=== PATIENT | female | born 1940 | race Caucasian/White ===

== ENCOUNTER 2016-12-15 13:27 | Inpatient (IN) | payer MEDICARE, BC ==
[~2016-12-15] VITALS: Ht 160 cm; Wt 61.4 kg
[~2016-12-15 13:27] MED LIST: ALBU14.76 IH
--- NOTE | 2016-12-15 13:36 | NUR ---
REPORT REC'D FROM DENZEL GOSS. THIS RN WILL RESUME CARE.
[2016-12-15] MEDS ORDERED: ALBU2.5V7 AEROSOL (13:44)
[2016-12-15] MEDS ORDERED: BUDE10.22 INH (13:45)
[2016-12-15] MEDS ORDERED: MAGN200T4 PO (13:46)
[2016-12-15] MEDS ORDERED: NITR0.4T39 SL (13:47)
[2016-12-15] MEDS ORDERED: SIMV20TA6 PO (13:47)
[2016-12-15] MEDS ORDERED: UMEC62.5 INH (13:48)
[2016-12-15] MEDS ORDERED: DICL75TA5 PO (13:49)
[2016-12-15] MEDS ORDERED: NORMAL SALINE 1,000 ML IV ONE (13:50)
[2016-12-15] MEDS ORDERED: PRED20TA PO (13:51)
[2016-12-15] MEDS ORDERED: CEFD300C3 PO (13:52)
--- NOTE | 2016-12-15 13:53 | NUR ---
PROVIDER DR. HUITRON AT BEDSIDE.
--- NOTE | 2016-12-15 13:59 | NUR ---
RT AT BEDSIDE FOR DUJERRYB TX.
[2016-12-15] MEDS ORDERED: ALBUTEROL/IPRATROPIUM INHAL. 2.5mg-0.5mg/3ml Neb. AEROSOL ONE (14:00)
--- NOTE | 2016-12-15 14:06 | ERPDOC ---
Departure Disposition Decision Date: Dec 15, 2016 Disposition Decision Time: 18:17 Disposition: 02 TO [facility] Impression Impression Impression: Primary Impression: COPD exacerbation Additional Impression: Hypoxemia Severity: Moderate Condition: Improved Seen By: Physician only Problems/Meds/Labs Reviewed?: Yes Medications reviewed and manag: Yes Follow up care ordered?: Yes Mental Status: Alert HPI - Dyspnea General Chief Complaint: Dyspnea/Respdistress Stated Complaint: DIFFICULTY BREATHING Time Seen by Provider: 13:50 HPI - Dyspnea Initial Comments 76-year-old female presents with shortness of breath. She has had 7-8 days of symptoms, was [facility] an [facility] in [place] and has been treated with prednisone and an oral antibiotic, but symptoms have not resolved. She does normally use Symbicort for breathing. Has a very long history of smoking, quit about 6 years ago. However prior to that she was smoking one to 2 packs daily. She does not normally have to use oxygen, but is requiring it here. No fever or chills. She does not have chest pain or pressure. Allergies: Coded Allergies: NKDA (Verified Allergy, Mild, 12/15/16) Past History Patient Medical History Problem List Updates: COPD, reactive airway. Vaccines Hx Influenza Vaccination: Yes (2 months ago) Hx Pneumococcal Vaccination: Yes (2 months ago) Review of Systems Cardiovascular Cardiac: see HPI Rhythm/Rate: see HPI Pulmonary Respiratory: see HPI All other Systems All Other Systems: Reviewed and Negative Physical Exam General General Nourishment: well nourished, well developed, adult General Body Habitus: well groomed Vitals and Pain First Documented Vital Signs Date Time Temp Pulse Resp B/P Pulse Ox O2 Delivery O2 Flow Rate FiO2 12/15/16 13:30 97.7 110 28 161/83 88 Room Air 12/15/16 13:30 2.00 Weight: Kilograms: 60.900 Height (feet): 5 Height (inches): 3.00 Triage Pain Scale: Normal Exams: Head: Normocephalic w/o trauma Neck: Full range of motion, without adenopathy, JVD, bruits or thyromegaly CV: Regular rate and rhythm, without murmur or gallop, Pulses 2+ all extremities, capillary refill, <2 seconds all ext., no pedal edema noted Abdomen: Bowel sounds positive, soft, non-tender, non-distended, no hepatosplenomegaly, masses or bruits noted Neurologic: Patient is alert, and oriented, cranial nerves, motor/sensory/ cerebellar, exams w/o gross deficits, to observation Psychiatric: Patient exhibits, appropriate attention, emotion and affect Respiratory (brief) Comments Wheezes bilaterally, poor air movement. Differential Diagnoses Considering: Acute MS, Acute Respiratory Failure, CHF, COPD Exacerbation, Pneumonia, Pneumothorax, Pulmonary Edema, Pulmonary Embolus Progress Results/Orders Orders Procedure Category Date Status Time Cmp - Comprehensive LAB 12/15/16 Complete Metabolic 13:50 Probnp LAB 12/15/16 Complete 13:50 Cbc W/Auto LAB 12/15/16 Complete Diff-Reflex Manual 13:50 Blood Culture EVARISTO 12/15/16 In Process 13:50 D-Dimer LAB 12/15/16 Complete 13:50 Troponin I W LAB 12/15/16 Complete Hemolysis Index 13:50 Ua, Dip Wreflex LAB 12/15/16 Complete Microsc & Marketing Forecaster 13:50 EKG EKG 12/15/16 Taken 13:50 Chest, Pa & Lateral RAD 12/15/16 Resulted 13:50 Iv Lock (Ed Only) EDM 12/15/16 Transmitted 13:50 Normal Saline (Normal PHA 12/15/16 Complete Saline Iv) 13:50 Albuterol/Ipratropium PHA 12/15/16 Complete (Duoneb) 14:00 Oxygen Administration EDM 12/15/16 Transmitted 13:50 Influenza A/B By Pcr LAB 12/15/16 Complete 14:07 Methylprednisolone PHA 12/15/16 Complete Sod Succ (Solu-Medrol 14:15 Lab Results Laboratory Tests Test 12/15/16 14:17 12/15/16 14:46 12/15/16 15:09 White Blood Count 10.7T/MM3 Red Blood Count 4.43M/MM3 Hemoglobin 14.5GM/DL Hematocrit 43.0% Mean Corpuscular Volume 97.1UM3 Mean Corpuscular Hemoglobin 32.7UUG Mean Corpuscular Hemoglobin Concent 33.7GM/DL RDW Standard Deviation 46.5FL Platelet Count 335T/MM3 Mean Platelet Volume 8.9UM3 Immature Granulocyte % (Auto) 1.2% Neutrophils (%) (Auto) 63.4% Lymphocytes (%) (Auto) 23.9% Monocytes (%) (Auto) 10.3% Eosinophils (%) (Auto) 0.6% Basophils (%) (Auto) 0.6% Absolute Immature Granulocyte (auto 0.13T/MM3 Absolute Neutrophils (auto) 6.8T/MM3 Absolute Lymphocytes (auto) 2.6T/MM3 Absolute Monocytes (auto) 1.1T/MM3 Absolute Eosinophils (auto) 0.1T/MM3 Absolute Basophils (auto) 0.1T/MM3 D-Dimer < 150NG/ML Turbidity < 20 Sodium Level 138MEQ/L Potassium Level 4.0MEQ/L Chloride Level 101MEQ/L Carbon Dioxide Level 20MEQ/L Anion Gap 17MEQ/L Blood Urea Nitrogen 15.0MG/DL Creatinine 0.7MG/DL Glomerular Filtration Rate Calc 81 BUN/Creatinine Ratio 21RATIO Glucose Level 127MG/DL Calculated Osmolality 269MOSM/KG Calcium Level 9.5MG/DL Total Bilirubin 0.90MG/DL Icterus Index < 2 Aspartate Amino Transf (AST/SGOT) 30U/L Alanine Aminotransferase (ALT/SGPT) 50U/L Alkaline Phosphatase 104U/L Troponin I < 0.012ng/ml MR-Voa-N-Type Natriuretic Peptide 68PG/ML Total Protein 7.7G/DL Albumin 4.4G/DL Globulin 3.3G/DL Albumin/Globulin Ratio 1.3RATIO Chemistry Specimen Hemolysis 16 Influenza Virus Type A (PCR) Negative Influenza Virus Type B (PCR) Negative Urine Collection Type Voided-not cc-midstr Urine Color Yellow Urine Turbidity Clear Urine pH 6.0 Urine Specific [place] 1.015 Urine Protein Trace Urine Glucose (UA) Negative Urine Ketones Trace Urine Blood Trace-intact Urine Nitrite Negative Urine Bilirubin Negative Urine Urobilinogen 0.2EU/DL Urine Leukocyte Esterase Trace Urinalysis Comment Microscopic not ind. Medications Current ED Medications Sodium Chloride (Normal Saline IV) 1,000 ml @ 1,000 mls/hr Q1H ONCE IV Last administered on 12/15/16 14:20; Start 12/15/16 at 13:50; Stop 12/15/16 at 14:49 ; Status DC Albuterol/ Ipratropium (Duoneb) 3 ml O ONCE AEROSOL Last administered on 14:00; Start 12/15/16 at 14:00; Stop 12/15/16 at 14:01; Status DC Methylprednisolone Sodium Succinate (Solu-Medrol) 125 mg O ONCE IV Last administered on 12/15/16t 14:21; Start 12/15/16 at 14:15; Stop 12/15/16 at 14:16 ; Status DC Progress Progress Patient has COPD exacerbation. She was given Solu-Medrol 125 mg IV, as well as IV bolus. Duo neb treatment helped, she still requires oxygen as a supplement. Requiring 2 L nasal cannula to keep her sats above 90%. [place] , [id number] and we're unable to set up her oxygen for tonight as she normally does not require it. Spoke with hospitalist on-call, she is willing to admit the patient for overnight observation, treatment of COPD exacerbation with oxygen and medication, and discharge tomorrow and we can get her outpatient medication set up. LATOYA HUITRON MD Dec 15, 2016 14:06
--- NOTE | 2016-12-15 14:09 | NUR ---
LAB AT BEDSIDE FOR BLOOD CULTURES.
[2016-12-15 14:23] LABS: BASOPHILS # (AUTO) 0.1 T/MM3 (0-0.2); BASOPHILS % (AUTO) 0.6 % (0-2); EOSINOPHILS # (AUTO) 0.1 T/MM3 (0-0.5); EOSINOPHILS % (AUTO) 0.6 % (0-4); HGB - HEMOGLOBIN 14.5 GM/DL (12-16); IMMATURE GRANULOCYTE # (AUTO) 0.13 T/MM3 (0.00-0.03); IMMATURE GRANULOCYTE % (AUTO) 1.2 % (0.0-0.5); LYMPHOCYTES # (AUTO) 2.6 T/MM3 (1-4.8); LYMPHOCYTES % (AUTO) 23.9 % (23-45); MEAN CORPUSCULAR HGB 32.7 UUG (26-34); MEAN CORPUSCULAR HGB CONC(MCHC 33.7 GM/DL (31-37); MEAN CORPUSCULAR VOLUME 97.1 UM3 (80-100); MEAN PLATELET VOLUME 8.9 UM3 (9.4-12.4); MONOCYTES # (AUTO) 1.1 T/MM3 (0-0.8); MONOCYTES % (AUTO) 10.3 % (0-9.0); NEUTROPHILS #(AUTO)-ABSOLUTE 6.8 T/MM3 (1.8-7.7); NEUTROPHILS % (AUTO) 63.4 % (33-66); RED BLOOD COUNT 4.43 M/MM3 (4.00-5.20); WBC - WHITE BLOOD COUNT 10.7 T/MM3 (4.5-11.0)
--- NOTE | 2016-12-15 14:25 | NUR ---
STATUS PT REPORTS DECREASED WORK OF BREATHING AFTER DUONEB TX. PRONOUNCED EXPIRATORY WHEEZING AUSCULTATED TO ALL LUNG GRAJEDA, PT MOVING MORE AIR THAN ON INITIAL ASSESSMENT. DENIES NEEDS AT THIS TIME. CALL LIGHT WITHIN REACH, WILL CONTINUE TO MONITOR.
--- NOTE | 2016-12-15 14:30 | NUR ---
RADIOLOGY PT TO RADIOLOGY BY CART AT THIS TIME.
[2016-12-15 14:33] LABS: ALBUMIN 4.4 G/DL (3.5-5.0); ALBUMIN/GLOBULIN RATIO 1.3 RATIO (1.1-2.2); ALKALINE PHOSPHATASE 104 U/L (38-126); ALT (SGPT) 50 U/L (9-52); ANION GAP 17 MEQ/L (5-15); AST (SGOT) 30 U/L (14-36); BUN/CREATININE RATIO 21 RATIO (6-26); CALCIUM 9.5 MG/DL (8.4-10.2); CHLORIDE 101 MEQ/L (98-107); CO2 - CARBON DIOXIDE 20 MEQ/L (22-30); CREATININE 0.7 MG/DL (0.7-1.2); GLOMERULAR FILTRATION RATE 81; GLUCOSE 127 MG/DL (65-110); SODIUM 138 MEQ/L (134-144); TOTAL PROTEIN 7.7 G/DL (6.3-8.2)
--- NOTE | 2016-12-15 14:40 | NUR ---
RETURN PT RETURNED FROM RADIOLOGY BY CART AT THIS TIME.
--- NOTE | 2016-12-15 14:50 | DI ---
INDICATION: ITS.REASON: dyspnea PROCEDURE: CHEST 2-VIEWS UPRIGHT (PA \T\ LAT) Encounter: Initial COMPARISON: None FINDINGS: The lungs are clear without evidence of focal abnormal airspace opacity. There is no pleural effusion or pneumothorax. Increased lucency in the right upper lobe consistent with emphysema. The heart size, mediastinal contours and pulmonary vascularity are within normal limits. There is no significant skeletal abnormality. IMPRESSION: No acute cardiopulmonary disease. Emphysema. .
[2016-12-15 14:53] LABS: PROBNP 68 PG/ML (0-175)
--- NOTE | 2016-12-15 15:09 | NUR ---
UA PT TO BSC FOR UA. CLEAR, DARK JOE SPECIMEN COLLECTED. INCREASED WORK OF BREATHING WITH ACTIVITY WITH NO CHANGE IN SPO2.
[2016-12-15 15:18] LABS: BLOOD, URINE TRACE-INTACT (NEGATIVE); COLOR,URINE YELLOW (YELLOW); LEUKOCYTE ESTERASE ,URINE TRACE (NEGATIVE); NITRITE,URINE NEGATIVE (NEGATIVE); UROBILINOGEN,URINE 0.2 EU/DL (NORMAL)
--- NOTE | 2016-12-15 15:55 | NUR ---
STATUS PT REPORTS NEEDING TO HAVE BM. OFFERED TO ASSIST PT TO BSC, PT REFUSES. REPORTS WILL "HOLD IT." CALL LIGHT WITHIN REACH. PT INSTRUCTED TO CALL FOR ANY FURTHER NEEDS.
--- NOTE | 2016-12-15 17:52 | NUR ---
PROVIDER DR. HUITRON AT BEDSIDE TO SPEAK WITH PT AND FAMILY.
--- NOTE | 2016-12-15 18:52 | NUR ---
ACTIVITY PT ASSISTED TO TOILET FOR BM AT THIS TIME. TOLERATES ACTIVITY FAIR. INCREASED WORK OF BREATHING WITH ACTIVITY.
--- NOTE | 2016-12-15 18:59 | NUR ---
REPORT CALLED TO DENZEL BEAVERS ON MEDICAL UNIT. DENIES QUESTIONS.
--- NOTE | 2016-12-15 19:20 | NUR ---
ADMIT PT TAKEN TO MEDICAL UNIT, RM 155 BY W/C AT THIS TIME ON 2LPM BY CED. REPORTS SHORTNESS OF BREATH HAS IMPROVED, SOME DISTRESS WITH RESPIRATORY EFFORT STILL PRESENT ON ADMISSION BUT HAS IMPROVED.
--- NOTE | 2016-12-15 19:22 | NUR ---
ADMIT PT WAS ADMITTED IN RM 155 FROM ER. PT ACCOMPANIED BY ER STAFFS. ALERT AND ORIENTED X 3. DENIED ANY PAIN. PT WAS EDUCATED ABOUT CALL LIGHT USE AND PT SAFETY. PT AMBULATING SELF. GAIT STEADY. DR BALDWIN CAME TO SEE THE PT.
[2016-12-15 19:33] VITALS: Ht 160 cm; Wt 61.4 kg
[2016-12-15 19:58] VITALS: PULSE 86; RESP 22; TEMP 97.7; O2SAT 94; O2SAT 95
[2016-12-15 20:05] VITALS: BP 153/76; PULSE 92; RESP 20; TEMP 96.7; O2SAT 90
[2016-12-15] MEDS ORDERED: ALBUTEROL/IPRATROPIUM INHAL. 2.5mg-0.5mg/3ml Neb. AEROSOL PRN (20:30)
[2016-12-15] MEDS: FORMOTEROL ORAL INH SCH (21:00)
[2016-12-15] MEDS: BUDESONIDE ORAL INH SCH (21:00)
--- NOTE | 2016-12-15 21:37 | HPPDOC ---
HPI - Adult Date DATE: 12/15/16 TIME: 21:20 General Chief Complaint: dyspnea History of Present Illness Mrs. Redd is a 76-year-old female who is traveling from [place] to [place] and visiting family in [place]. Underlying COPD and was treated for recent COPD exacerbation at a walk-in clinic in [place] with 5 day course of prednisone and Cefdinir for 7 days. She has about 1 day of antibiotics left. Symptoms have really not improved with persistent dyspnea, exertional dyspnea, cough productive of thick yellow sputum, and increased wheezing. She's not had fever, chills, or sweats. She had a similar episode 2 or 3 years ago. She has increased use of her inhalers and use nebulizer occasionally which is atypical for her disease. Nebulizer and inhalers provide only brief relief. She denied chest pain other than pain in her ribs which she attributes to repetitive coughing. She generally does not require oxygen but during ER evaluation was hypoxic and continued to require supplemental oxygen prompting hospitalization for further stabilization. Past Medical History Past Medical History COPD, reactive airway Hyperlipidemia Surgical History Patient's Surgical History: None Current Medications Home Meds Reported Medications Cefdinir (Cefdinir) 300 Mg Capsule, 300 MG PO BID for 7 Days 12/15/16 Prednisone (Prednisone) 20 Mg Tablet, 20 MG PO DAILY for 5 Days 12/15/16 Diclofenac Sodium (Diclofenac Sodium) 75 Mg Tablet.dr, 75 MG PO DAILY, TAB 12/15/16 Umeclidinium [place] (Incruse Ellipta) 62.5 Mcg Blst.w.dev, 1 DOSE INH DAILY 12/15/16 Simvastatin (Simvastatin) 20 Mg Tablet, 20 MG PO HS 12/15/16 Nitroglycerin (Nitroglycerin) 0.4 Mg Tab.subl, 0.4 MG SL Q5M Y for CHEST TIGHTNESS 12/15/16 Magnesium (Magnesium) 200 Mg Tablet, 400 MG PO DAILY 12/15/16 Budesonide/Formoterol Fumarate (Symbicort 80-4.5 Mcg Inhaler) 60 Puff/Inhaler Inhaler, 2 PUFF INH BID 12/15/16 Albuterol Sulfate (Albuterol Sulfate) 2.5 Mg/3 Ml Vial.neb, 1 VIAL AEROSOL [id number] Y for SHORTNESS OF AIR 12/15/16 Ipratropium/Albuterol Sulfate (Combivent Inhaler) 14.7 Gm Aer.w.adap, 1 SPRAY IH PRN 08/17/11 Allergies: Coded Allergies: NKDA (Verified Allergy, Mild, 12/15/16) Family History Family History: Father age 86 of lung cancer, mother also at 86-cause uncertain Social History Smoking Status: Former smoker (little more than one pack a day for about 50 years, discontinued 8 years ago) Does patient use chewing tobac: No Substance Use Type: does not use Alcohol Intake: daily (2 drinks daily) Marital Status: Current 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 Patient repetitively tells me she is completely healthy except for current trouble breathing. Physical Exam General Vital Signs Vital Signs Date Time Temp Pulse Resp B/P Pulse Ox O2 Delivery O2 Flow Rate FiO2 12/15/16 20:05 96.7 92 20 153/76 90 Nasal Cannula 2.00 EXAM: General-NAD, alert, cooperative, fluent speech HEENT-PERRL, EOMI without nystagmus, conjugate gaze, facial structures symmetric , oropharynx clear, neck supple and without adenopathy Lungs-respirations slightly labored-especially with speaking, decreased airflow , faint inspiratory and expiratory wheezing anteriorly and posteriorly, no crackles or rhonchi Cardiac-regular rhythm, S1-S2, low-grade tachycardia Abd-soft, nontender, without palpable mass, bowel sounds present Ext-without edema, degenerative changes in the small joints of the hands Skin-tanned, without generalized rash or wounds Neuro-moving all extremities well, normal motor tone, sensation intact 4 extremities, cranial nerves II-12 intact Psych-calm, cooperative, euthymic Height (Feet): 5 Height (Inches): 3.00 Neurologic RN Documented GCS Eye Opening: Verbal: Motor: Total: Laboratory Laboratory Tests Test 12/15/16 14:17 12/15/16 14:46 12/15/16 15:09 White Blood Count 10.7T/MM3 Red Blood Count 4.43M/MM3 Hemoglobin 14.5GM/DL Hematocrit 43.0% Mean Corpuscular Volume 97.1UM3 Mean Corpuscular Hemoglobin 32.7UUG Mean Corpuscular Hemoglobin Concent 33.7GM/DL RDW Standard Deviation 46.5FL Platelet Count 335T/MM3 Mean Platelet Volume 8.9UM3 Immature Granulocyte % (Auto) 1.2% Neutrophils (%) (Auto) 63.4% Lymphocytes (%) (Auto) 23.9% Monocytes (%) (Auto) 10.3% Eosinophils (%) (Auto) 0.6% Basophils (%) (Auto) 0.6% Absolute Immature Granulocyte (auto 0.13T/MM3 Absolute Neutrophils (auto) 6.8T/MM3 Absolute Lymphocytes (auto) 2.6T/MM3 Absolute Monocytes (auto) 1.1T/MM3 Absolute Eosinophils (auto) 0.1T/MM3 Absolute Basophils (auto) 0.1T/MM3 D-Dimer < 150NG/ML Turbidity < 20 Sodium Level 138MEQ/L Potassium Level 4.0MEQ/L Chloride Level 101MEQ/L Carbon Dioxide Level 20MEQ/L Anion Gap 17MEQ/L Blood Urea Nitrogen 15.0MG/DL Creatinine 0.7MG/DL Glomerular Filtration Rate Calc 81 BUN/Creatinine Ratio 21RATIO Glucose Level 127MG/DL Calculated Osmolality 269MOSM/KG Calcium Level 9.5MG/DL Total Bilirubin 0.90MG/DL Icterus Index < 2 Aspartate Amino Transf (AST/SGOT) 30U/L Alanine Aminotransferase (ALT/SGPT) 50U/L Alkaline Phosphatase 104U/L Troponin I < 0.012ng/ml MX-Cyt-N-Type Natriuretic Peptide 68PG/ML Total Protein 7.7G/DL Albumin 4.4G/DL Globulin 3.3G/DL Albumin/Globulin Ratio 1.3RATIO Chemistry Specimen Hemolysis 16 Influenza Virus Type A (PCR) Negative Influenza Virus Type B (PCR) Negative Urine Collection Type Voided-not cc-midstr Urine Color Yellow Urine Turbidity Clear Urine pH 6.0 Urine Specific [place] 1.015 Urine Protein Trace Urine Glucose (UA) Negative Urine Ketones Trace Urine Blood Trace-intact Urine Nitrite Negative Urine Bilirubin Negative Urine Urobilinogen 0.2EU/DL Urine Leukocyte Esterase Trace Urinalysis Comment Microscopic not ind. EKG Twelve-lead EKG reviewed by myself demonstrates sinus rhythm with no waveform abnormalities. Radiology PA/lateral chest x-ray reviewed by myself demonstrating no acute pathology Assessment & Plan Assessment COPD with acute exacerbation; failed outpatient therapy Hypoxia Hyperlipidemia Elevated blood pressures Patient presents with COPD exacerbation which has failed to respond to oral prednisone at a dose of 20 mg daily for 5 days prior to admission and oral antibiotics. High-dose steroids were administered IV in the emergency room and Solu-Medrol will be continued IV overnight. Anticipate higher dose prednisone will be needed to break current exacerbation then dose previously administered. I doubt additional antibiotics will be needed but sputum culture will be obtained. Respiratory viral panel will be obtained to look for viral pathogens other than influenza. RCAT requested, continue long-acting beta and inhaled steroid in conjunction with duoneb 4 times a day and when necessary. Continue simvastatin and diclofenac as needed. Reassess oxygenation in the morning to determine if patient will require supplemental O2 at discharge. Plan/Intensity of Service Discussed with Dr. Gomes, nursing, and RT. Chest x-ray and EKG reviewed by myself , laboratory data reviewed and supplemental studies ordered. Code Status Full Code Hospital Course Summary Disclaimer The hospital course summary below is not to be considered part of the above Progress Note. SELVIN BALDWIN MD Dec 15, 2016 21:26
[2016-12-15] MEDS ORDERED: DICLOFENAC SODIUM 25 MG PO PRN (21:45)
[2016-12-15] MEDS ORDERED: SIMVASTATIN 20 MG TABLET PO SCH (22:00)
[2016-12-15 23:28] VITALS: RESP 18
[2016-12-16] VITALS (13 sets, daily range): BP systolic 139–162; BP diastolic 66–71; PULSE 78–98; RESP 18–22; TEMP 97–97.5; O2SAT 90–93
[2016-12-16] MEDS: ALBUTEROL/IPRATROPIUM INHAL. 2.5mg-0.5mg/3ml Neb. AEROSOL SCH ×4 (00:30→20:43)
[2016-12-16 05:23] LABS: BASOPHILS % (AUTO) 0.1 % (0-2); HCT - HEMATOCRIT 38.5 % (36-46); HGB - HEMOGLOBIN 12.9 GM/DL (12-16); IMMATURE GRANULOCYTE # (AUTO) 0.08 T/MM3 (0.00-0.03); IMMATURE GRANULOCYTE % (AUTO) 0.8 % (0.0-0.5); LYMPHOCYTES # (AUTO) 1.4 T/MM3 (1-4.8); MEAN CORPUSCULAR HGB 32.9 UUG (26-34); MEAN CORPUSCULAR HGB CONC(MCHC 33.5 GM/DL (31-37); MEAN CORPUSCULAR VOLUME 98.2 UM3 (80-100); MONOCYTES # (AUTO) 0.3 T/MM3 (0-0.8); MONOCYTES % (AUTO) 3.1 % (0-9.0); NEUTROPHILS #(AUTO)-ABSOLUTE 8.3 T/MM3 (1.8-7.7); RED BLOOD COUNT 3.92 M/MM3 (4.00-5.20); WBC - WHITE BLOOD COUNT 10.2 T/MM3 (4.5-11.0)
[2016-12-16 05:36] LABS: ANION GAP 13 MEQ/L (5-15); BUN/CREATININE RATIO 21 RATIO (6-26); CALCIUM 8.4 MG/DL (8.4-10.2); CHLORIDE 104 MEQ/L (98-107); CO2 - CARBON DIOXIDE 23 MEQ/L (22-30); CREATININE 0.7 MG/DL (0.7-1.2); GLOMERULAR FILTRATION RATE 81; GLUCOSE 143 MG/DL (65-110); POTASSIUM 3.9 MEQ/L (3.6-5); SODIUM 140 MEQ/L (134-144)
--- NOTE | 2016-12-16 06:07 | NUR ---
SUMMARY PT SLEPT WELL THIS SHIFT. ALERT AND ORIENTED. DENIED ANY PAIN THIS SHIFT. GAIT STEADY. AMBULATE SELF TO THE BATHROOM. PT STILL WHEEZING. REPORTS SHE HAS IMPROVED COMPARED TO THE WAY SHE WAS YESTERDAY. ON 2L/NC OXYGEN. PT WAS EDUCATED ABOUT THE MEDS INTAKE. SHE TOOK HER HOME MEDS LAST NIGHT WITHOUT THE STAFF APPROVAL. SIMVASTATIN HELD LAST NIGHT. PT VOICED UNDERSTANDING.
[2016-12-16] MEDS ORDERED: INCRUSE ELLIPTA INH ONE (09:00)
[2016-12-16] MEDS: BUDESONIDE ORAL INH SCH ×2 (10:20→18:50)
[2016-12-16] MEDS: FORMOTEROL ORAL INH SCH ×2 (10:20→18:50)
--- NOTE | 2016-12-16 14:05 | PNPDOC ---
Subjective Date DATE: 12/16/16 TIME: 13:58 Subjective Mrs. Redd reports that she remains dyspneic although she is not wheezing as much and was able to walk further today than she has recent days. Cough is less intense and she's had no sputum production. She denied chest pain and is not having as much rib pain since she's not coughing as badly today. She denied fevers, lightheadedness, nausea, or constipation. Hypoxia persists and 3 L supplemental oxygen was needed with ambulation to maintain saturation at 90%. Objective Vital Signs Vital signs Vital Signs Date Time Temp Pulse Resp B/P Pulse Ox O2 Delivery O2 Flow Rate FiO2 12/16/16 11:19 78 12/16/16 11:10 18 91 12/16/16 07:46 Nasal Cannula 3.00 12/16/16 07:43 97.5 139/71 EXAM General-NAD, alert HEENT-conjunctiva clear, sclera anicteric, conjugate gaze, oropharynx clear and without indication of thrush Lungs-respirations nonlabored, airflow improved from yesterday evening, no wheezing appreciated Cardiac-regular rhythm, S1-S2 Abd-soft, nontender, without palpable mass, bowel sounds present Ext-without edema Neuro-moving all extremities well Psych-calm, pleasant Height (Feet): 5 Height (Inches): 3.00 Weight (Kilograms): 61.000 Laboratory Laboratory Laboratory Tests 12/15/16 14:17 12/16/16 04:04 Laboratory Tests 12/15/16 14:17 12/16/16 04:04 Differential unremarkable Microbiology Microbiology Microbiology Date/Time Source Procedure Growth Status 12/15/16 14:14 Peripheral/Iv Start Blood Culture - Preliminary CULTURE INITIATED - RESULTS PENDING Resulted 12/15/16 14:10 Peripheral/Iv Start Blood Culture - Preliminary CULTURE INITIATED - RESULTS PENDING Resulted Respiratory viral panel negative Assessment & Plan Assessment COPD with acute exacerbation; failed outpatient therapy Acute hypoxic respiratory failure Hyperlipidemia Elevated blood pressures Mild hypoglycemia, consistent with steroid use Respiratory status is stabilizing however she failed recent course of outpatient prednisone and antibiotics. She remains hypoxic and is requiring 3 L of oxygen to keep oxygen saturation at 90% and may potentially require higher flow. Continue Solu-Medrol for additional 24 hours with expectation that she will convert to oral prednisone tomorrow for discharge and to continue her trip home to [place]. Multiple conversations with case management regarding coordination of portable oxygen for duration of the patient's trip. Given recent 7 day course of antibiotics I don't believe additional antibiotic therapy is likely to be of benefit and sputum production appears to be dropping off. Blood pressures remain modestly elevated-will defer to patient's primary care physician for reassessment after steroids have been completed. Plan/Intensity of Service Discussed with Dr. Gomes, nursing, and RT. Chest x-ray and EKG reviewed by myself , laboratory data reviewed and supplemental studies ordered. Code Status Full Code Hospital Course Summary Disclaimer The hospital course summary below is not to be considered part of the above Progress Note. Hospital Course Summary 12/15 Patient presents with COPD exacerbation which has failed to respond to oral prednisone at a dose of 20 mg daily for 5 days prior to admission and oral antibiotics. High-dose steroids were administered IV in the emergency room and Solu-Medrol will be continued IV overnight. Anticipate higher dose prednisone will be needed to break current exacerbation then dose previously administered. I doubt additional antibiotics will be needed but sputum culture will be obtained. Respiratory viral panel will be obtained to look for viral pathogens other than influenza. RCAT requested, continue long-acting beta and inhaled steroid in conjunction with duoneb 4 times a day and when necessary. Continue simvastatin and diclofenac as needed. Reassess oxygenation in the morning to determine if patient will require supplemental O2 at discharge. 12/16 Respiratory status is stabilizing however she failed recent course of outpatient prednisone and antibiotics. She remains hypoxic and is requiring 3 L of oxygen to keep oxygen saturation at 90% and may potentially require higher flow. Continue Solu-Medrol for additional 24 hours with expectation that she will convert to oral prednisone tomorrow for discharge and to continue her trip home to [place]. Multiple conversations with case management regarding coordination of portable oxygen for duration of the patient's trip. Given recent 7 day course of antibiotics I don't believe additional antibiotic therapy is likely to be of benefit and sputum production appears to be dropping off. Blood pressures remain modestly elevated-will defer to patient's primary care physician for reassessment after steroids have been completed. SELVIN BALDWIN MD Dec 16, 2016 14:04
[2016-12-16] MEDS ORDERED: PRED20TA PO (14:06)
--- NOTE | 2016-12-16 14:50 | NUR ---
transferred to inpt status.
--- NOTE | 2016-12-16 18:08 | NUR ---
shift status Becomes soa with exertion o2 is on at 2 liters has a dry nonproductive cough. ambulated to and in jon denies any chest pain.
[2016-12-16] MEDS ORDERED: POM SIMVASTATIN 40 MG TABLET PO SCH (22:00)
--- NOTE | 2016-12-17 04:55 | NUR ---
SHIFT SUMMARY PATIENT IS ALERT AND ORIENTED X3 THIS SHIFT. VITAL SIGNS ARE STABLE ON ROOM AIR. PATIENT IS UP AT [facility]. WHEN QUESTIONED PATIENT STATES SHE HAS URINATED TWICE OVER NIGHT. OTHERWISE, PATIENT HAS SLEPT THROUGH THE NIGHT. WILL CONTINUE TO MONITOR.
[2016-12-17] MEDS: ALBUTEROL/IPRATROPIUM INHAL. 2.5mg-0.5mg/3ml Neb. AEROSOL SCH ×2 (07:02→10:00)
[2016-12-17 07:05] VITALS: O2SAT 91
[2016-12-17 07:18] VITALS: BP 154/78; PULSE 90; RESP 20; TEMP 96.9; O2SAT 91
[2016-12-17 07:22] VITALS: PULSE 92; RESP 16
[2016-12-17 07:45] VITALS: PULSE 92; RESP 16
[2016-12-17] MEDS ORDERED: PredniSONE 20 MG TABLET PO SCH (08:00)
[2016-12-17] MEDS: BUDESONIDE ORAL INH SCH (08:39)
[2016-12-17] MEDS: FORMOTEROL ORAL INH SCH (08:39)
--- NOTE | 2016-12-17 09:46 | DSPDOC ---
General Date Date DATE: 12/17/16 TIME: 09:42 Attending Physician Rita Lawrence MD Admitting Physician Rita Lawrence MD Consulting Physician Admitting Diagnosis hypoxemia, copd exacerbation Discharge Diagnosis COPD exacerbation and hypoxemia Laboratory Laboratory Tests Test 12/16/16 04:04 White Blood Count 10.2T/MM3 (4.5-11.0) Red Blood Count 3.92M/MM3 (4.00-5.20) Hemoglobin 12.9GM/DL (12-16) Hematocrit 38.5% (36-46) Mean Corpuscular Volume 98.2UM3 (80-100) Mean Corpuscular Hemoglobin 32.9UUG (26-34) Mean Corpuscular Hemoglobin Concent 33.5GM/DL (31-37) RDW Standard Deviation 46.5FL (36.9-50.2) Platelet Count 310T/MM3 (130-400) Mean Platelet Volume 9.0UM3 (9.4-12.4) Immature Granulocyte % (Auto) 0.8% (0.0-0.5) Neutrophils (%) (Auto) 82.0% (33-66) Lymphocytes (%) (Auto) 14.0% (23-45) Monocytes (%) (Auto) 3.1% (0-9.0) Eosinophils (%) (Auto) 0.0% (0-4) Basophils (%) (Auto) 0.1% (0-2) Absolute Immature Granulocyte (auto 0.08T/MM3 (0.00-0.03) Absolute Neutrophils (auto) 8.3T/MM3 (1.8-7.7) Absolute Lymphocytes (auto) 1.4T/MM3 (1-4.8) Absolute Monocytes (auto) 0.3T/MM3 (0-0.8) Absolute Eosinophils (auto) 0.0T/MM3 (0-0.5) Absolute Basophils (auto) 0.0T/MM3 (0-0.2) Turbidity < 20 (0-20) Sodium Level 140MEQ/L (134-144) Potassium Level 3.9MEQ/L (3.6-5) Chloride Level 104MEQ/L (98-107) Carbon Dioxide Level 23MEQ/L (22-30) Anion Gap 13MEQ/L (5-15) Blood Urea Nitrogen 15.0MG/DL (7-17) Creatinine 0.7MG/DL (0.7-1.2) Glomerular Filtration Rate Calc 81 BUN/Creatinine Ratio 21RATIO (6-26) Glucose Level 143MG/DL (65-110) Calculated Osmolality 272MOSM/KG (261-280) Calcium Level 8.4MG/DL (8.4-10.2) Icterus Index < 2 (0-7) Chemistry Specimen Hemolysis < 15 (0-25) Microbiology Microbiology Date/Time Source Procedure Growth Status 12/15/16 14:14 Peripheral/Iv Start Blood Culture - Preliminary NO GROWTH AFTER 24 HOURS Resulted 12/15/16 14:10 Peripheral/Iv Start Blood Culture - Preliminary NO GROWTH AFTER 24 HOURS Resulted History of Present Illness Mrs. Redd is a 76-year-old female who is traveling from [place] to [place] and visiting family in [place]. Underlying COPD and was treated for recent COPD exacerbation at a walk-in clinic in [place] with 5 day course of prednisone and Cefdinir for 7 days. She has about 1 day of antibiotics left. Symptoms have really not improved with persistent dyspnea, exertional dyspnea, cough productive of thick yellow sputum, and increased wheezing. She's not had fever, chills, or sweats. She had a similar episode 2 or 3 years ago. She has increased use of her inhalers and use nebulizer occasionally which is atypical for her disease. Nebulizer and inhalers provide only brief relief. She denied chest pain other than pain in her ribs which she attributes to repetitive coughing. She generally does not require oxygen but during ER evaluation was hypoxic and continued to require supplemental oxygen prompting hospitalization for further stabilization. Hospital Course 12/15 Patient presents with COPD exacerbation which has failed to respond to oral prednisone at a dose of 20 mg daily for 5 days prior to admission and oral antibiotics. High-dose steroids were administered IV in the emergency room and Solu-Medrol will be continued IV overnight. Anticipate higher dose prednisone will be needed to break current exacerbation then dose previously administered. I doubt additional antibiotics will be needed but sputum culture will be obtained. Respiratory viral panel will be obtained to look for viral pathogens other than influenza. RCAT requested, continue long-acting beta and inhaled steroid in conjunction with duoneb 4 times a day and when necessary. Continue simvastatin and diclofenac as needed. Reassess oxygenation in the morning to determine if patient will require supplemental O2 at discharge. 12/16 Respiratory status is stabilizing however she failed recent course of outpatient prednisone and antibiotics. She remains hypoxic and is requiring 3 L of oxygen to keep oxygen saturation at 90% and may potentially require higher flow. Continue Solu-Medrol for additional 24 hours with expectation that she will convert to oral prednisone tomorrow for discharge and to continue her trip home to [place]. Multiple conversations with case management regarding coordination of portable oxygen for duration of the patient's trip. Given recent 7 day course of antibiotics I don't believe additional antibiotic therapy is likely to be of benefit and sputum production appears to be dropping off. Blood pressures remain modestly elevated-will defer to patient's primary care physician for reassessment after steroids have been completed. 12/17 Patient states that she is unchanged from yesterday. States that she is eager to leave. at bedside is agreeable to this. They have home oxygen set up and are going to use it as needed, currently 2-3 L nasal cannula. She had no adverse events last night prior to discharge. Problems: Code Status Full Code Home Meds Active Scripts Prednisone (Prednisone) 20 Mg Tablet, 40 MG PO WB for 7 Days, #14 TAB Take 2 (20 mg) tablets, by mouth, once a day with breakfast. Prov:RITA LAWRENCE MD 12/16/16 Reported Medications Cefdinir (Cefdinir) 300 Mg Capsule, 300 MG PO BID for 7 Days 12/15/16 Prednisone (Prednisone) 20 Mg Tablet, 20 MG PO DAILY for 5 Days 12/15/16 Diclofenac Sodium (Diclofenac Sodium) 75 Mg Tablet.dr, 75 MG PO DAILY, TAB 12/15/16 Umeclidinium Randall (Incruse Ellipta) 62.5 Mcg Blst.w.dev, 1 DOSE INH DAILY 12/15/16 Simvastatin (Simvastatin) 20 Mg Tablet, 20 MG PO HS 12/15/16 Nitroglycerin (Nitroglycerin) 0.4 Mg Tab.subl, 0.4 MG SL Q5M Y for CHEST TIGHTNESS 12/15/16 Magnesium (Magnesium) 200 Mg Tablet, 400 MG PO DAILY 12/15/16 Budesonide/Formoterol Fumarate (Symbicort 80-4.5 Mcg Inhaler) 60 Puff/Inhaler Inhaler, 2 PUFF INH BID 12/15/16 Albuterol Sulfate (Albuterol Sulfate) 2.5 Mg/3 Ml Vial.neb, 1 VIAL AEROSOL [id number] Y for SHORTNESS OF AIR 12/15/16 Ipratropium/Albuterol Sulfate (Combivent Inhaler) 14.7 Gm Aer.w.adap, 1 SPRAY IH PRN 08/17/11 Face to Face Encounter I met with patient on the day of dismissal and discussed follow up appointments , medications, and safety plan. Discharge Disposition Home REBECCA GASPAR MD Dec 17, 2016 09:46
[2016-12-17 10:02] VITALS: O2SAT 90
--- NOTE | 2016-12-17 10:25 | NUR ---
Discharge note. VSS. Patient on 3L O2 per nasal cannula with activity, 2l at rest. Discharge instructions explained to patient. Patient verbalized understanding. Transported to entrance via wheelchair. Discharge summary faxed to [facility]. Patient sent home with total of 4 tanks.
--- NOTE | 2016-12-17 11:05 | NUR ---
CHARTING REVIEWED STUDENT SERGIO LOCKHART'S CHARTING REVIEWED BY THIS RN FOR 12/17.
[2016-12-17] MEDS ORDERED: SIMVASTATIN 20 MG TABLET PO SCH (22:00)
== END 2016-12-17 10:25 | disposition home or self-care (01) | DRG 190 ==
LOC: ED 13:27 → MED 18:51 → EDHOLD 18:51 → OBSVTOIN 12-16 14:08
PROVIDERS: ADMIT Internal Medicine; ATTEND Internal Medicine
DX: J44.1 Chronic obstructive pulmonary disease with (acute) exacerbation (principal); J96.01 Acute respiratory failure with hypoxia; E78.5 Hyperlipidemia, unspecified; R03.0 Elevated blood-pressure reading, without diagnosis of hypertension; R73.9 Hyperglycemia, unspecified; T38.0X5A Adverse effect of glucocorticoids and synthetic analogues, initial encounter; Z87.891 Personal history of nicotine dependence; Z79.52 Long term (current) use of systemic steroids
CPT/HCPCS: 36415; 80048; 80053; 81003; 83880; 84484; 85025; 85379; 87040; 87486; 87502; 87581; 87633; 87798; 93005; 94640; 94761; 96361; 96374; 99218